=== PATIENT | female | born 1950 | race Caucasian/White ===

== ENCOUNTER 2020-06-10 12:19 | Inpatient (IN) | payer MEDICARE, OTHER ==
[~2020-06-10] VITALS: Ht 152.4 cm; Wt 63.0 kg
--- NOTE | 2020-06-10 16:45 | NUR ---
PT ARRIVED TO CCU VIA STRETCHER AT 1620 ACCOMPANIED BY KRISTAL UP. ABLE TO STAND AND PIVOT TO BED. HR UP IN 130'S-160'S WITH ACTIVITY. SOB, ACCESSORY MUSCLE USE AND TACHYPNEIC. REPORT PAIN IN RIGHT RIB/CHEST AREA THAT HAS OCCURRED FOR 3 DAYS AND GOTTEN WORSE TODAY. PT RATES PAIN 7/10, SHARP AND CONSTANT. WILL NOTIFY MD OF HR.
--- NOTE | 2020-06-10 18:30 | NUR ---
PT URINATED 300 MLS OF FOUL MARGARET URINE. LABORED BREATHING WITH EXERTION. ABLE TO GET UP TO BSC. HR INCREASED TO 160'S. AFTER SETTLING BACK IN TO BED HR STILL ELEVATED, 5 MG IV METOPROLOL GIVEN. HR MORE STABLE NOW 90'S-100'S. STARTED NEW 22 G IV IN RT WRIST. D5 1/2 NS 20 MEQ K INFUSING CURRENTLY. PT REFUSED DINNER. WENT IN WHEN IV PUMP ALARMED, PT COVERED IN SWEAT AND REPORTS NIGHT SWEATS ARE NORMAL FOR HER WHEN SHE SLEEPS. PT AFEBRILE. PT REQUESTED TO CONTINUE SLEEPING, CALL LIGHT WITHIN REACH.
--- NOTE | 2020-06-10 19:15 | NUR ---
Report received, orders acknowledged. HR in the 90's, SpO2 in the upper 90's on RA.
--- NOTE | 2020-06-10 20:15 | NUR ---
Patient sleeping on right side, respirations even and unlabored. SpO2 in the upper 90's on RA, HR in the 90's. D5 1/2NS with 20K infusing at 125 mls/hr. Call light within reach.
--- NOTE | 2020-06-10 20:45 | NUR ---
Patient sleeping in bed on right side, respirations even and unlabored. Patient rouses to physical stimulation. Patient reports "I just feel so tired." Vital signs taken, assessment complete. Diminished and coarse lung sounds auscultated on the upper/lower right side, clear sounds auscultated throughout the left lobe. SBA to bedside commode, patient slightly unsteady on feet. 350 mls of dark yellow urine produced. Patient hair drenched in sweat, patient reports "I've been very sweaty at night the last month. I don't have a fever ever though, so I don't know why." Water refreshed, patient adjusted in bed for comfort. Denies further needs at this time, call light within reach.
--- NOTE | 2020-06-10 22:57 | NUR ---
Patient sleeping on right side, respirations even and unlabored. Snoring noted. Patient rouses to touch as pulse oximetry readjusted on patient finger. HR in the 90's, SpO2 of 96% on RA. Patient denies pain, states "I'm just so tired." Denies needs at this time, falls back asleep easily. Call light within reach.
--- NOTE | 2020-06-11 00:30 | NUR ---
Patient sleeping in bed on left side. Respiratory rate noted to be 30 breaths/min, breathing is regular but slightly labored. No accessory muscle use noted. SpO2 in the upper 90's on RA, HR in the 90's. Patient rouses to voice. Vital signs taken, assessment complete. Temp of 99.0 degrees noted, light expiratory wheezes auscultated throughout all lobes. Diminished lung sounds in the right lobe, good aeration auscultated in the left lobe. Patient reports pain in the lower right chest with deep breathing or coughing. Denies need for prn medication, reports the pain is intermittent and tolerable. Patient states "I am just so exhausted." Denies further needs at this time, patient falls back asleep easily. Call light within reach.
--- NOTE | 2020-06-11 02:15 | NUR ---
Six second run of SVT noted with HR in the 160s. Patient sleeping at this time. Will continue to monitor.
--- NOTE | 2020-06-11 03:00 | NUR ---
Patient request to void. Up to bedside commode with SBA, voids 325 mls of jeff urine. Returns to bed. Patient clammy from sweating, warm cloths provided to wash face. Hair combed. HR sustaining in the 110-120's, 5mg of IV metoprolol given. Patient reports pain of 7/10 in right ribs, 650mg of PO tylenol given. Sputum sample collected, bloody sputum noted. Vital signs taken, assessment complete. Clear lung sounds throughout the left lobe. Diminished lung sounds with soft expiratory wheezes auscultated throughout the right lobe. SpO2 in the mid-90's on RA, patient RR in the upper 20's. SOB noted with the activity of using the BSC. Patient denies needs at this time, call light within reach.
--- NOTE | 2020-06-11 05:30 | NUR ---
Patient sleeping in bed on left side, RR in the low 20's. Respirations regular with slightly labored breathing noted. No accessory muscle use. SpO2 in the mid-90's on RA. Patient rouses to voice. Vital signs taken, assessment complete. Expiratory wheezes more prominently auscultated throughout right lobe with coarse sounds as well. Breathing tx administered. Fluids infusing at 125 mls/hr. Patient head and neck notably diaphoretic, cold cloth applied. Hair combed and new gown provided due to sweatiness. Patient reports pain in right side of chest is a dull 2/10 pain with shallow breaths, 7/10 sharp pain with deep breaths or coughing. Patient denies needs at this time, call light within reach.
--- NOTE | 2020-06-11 06:40 | EKG ---
[facility] [address] [place], [place] [address] Signed Sinus tachycardia with premature atrial complexes Otherwise normal ECG No previous ECGs available Confirmed by NICHOLAS TA MD ([id number] on 06/11/2020 6:40:33 AM Electronically Signed By: NICHOLAS TA MD 06/11/20 0640 PATIENT NAME: ONIEL DING Electrocardiogram DATE OF : 52 PHYSICIAN: NICHOLAS TA MD REPORT #: [id number] REPORT IS CONFIDENTIAL AND NOT TO BE RELEASED WITHOUT AUTHORIZATION
--- NOTE | 2020-06-11 07:35 | PATH ---
[facility] [address] [place], [place] [address] Signed ORDERING PHYSICIAN: Mary Yadav MD PATIENT NAME: ONIEL DINGAN GENDER: F : 1950 Prior History: No cases found. SPECIMEN(S): MOLECULAR PATHOLOGY RESULTS: SARS-CoV-2 Not Detected ADDITIONAL NOTES.: The [place] Fusion SARS-CoV-2 Assay is a multiplex real-time PCR (RT-PCR) in vitro diagnostic test intended for the qualitative detection of RNA from SARS-CoV-2 from individuals who meet COVID-19 clinical and/or epidemiological criteria. In general, SARS-CoV-2 RNA can be detected during the acute phase of infection. Positive results indicate the presence of SARS-CoV-2 RNA. Clinical correlation with patient history and other diagnostic information is necessary to determine patient infection status. Positive results do not rule out bacterial infection or co-infection with other viruses. Negative results do not preclude SARS-CoV-2 infection and should not be used as the sole basis for patient management decisions. Negative results must be combined with other clinical observations, patient history, and epidemiological information. The [place] Fusion SARS-CoV-2 Assay is not yet approved or cleared by the [place] FDA. When there are no FDA-approved or cleared tests available, and other criteria are met, FDA can make tests available under an emergency access mechanism called an Emergency Use Authorization (EUA). The EUA for this test is supported by the [place] of Health and Human Service's (HHS's) declaration that circumstances exist to justify the emergency use of in vitro diagnostics for the detection and/or diagnosis of the virus that causes COVID-19. This EUA will remain in effect for the duration of the COVID-19 declaration justifying emergency of IVDs, unless it is terminated or revoked by FDA, after which the test may no longer be used. The [place] Fusion SARS-CoV-2 Assay is for use only under EUA PATIENT NAME: ONIEL DING PATHOLOGY DATE OF : 52 REPORT #: [id number] PHYSICIAN: MARLEEN FERNANDEZ PCP: NO PRIMARY CARE PHYSICIAN REPORT IS CONFIDENTIAL AND NOT TO BE RELEASED WITHOUT AUTHORIZATION [facility] [address] [place] [id number] Signed in laboratories certified under the Clinical Laboratory Improvement Amendments of 1988 (CLIA) to perform high complexity tests. [facility] is certified under CLIA to perform high complexity clinical laboratory testing. PERFORMING LABORATORY.: Molecular testing was performed by [facility] [address] [place], [place] [address] [address] (Wood Fence Installer: Enoch Marley D.O.; CLIA#: [id number]) Diagnostician: System Interface Pathologist Electronically Signed 06/11/2020 Copies: ~ PATIENT NAME: ONIEL DING PATHOLOGY DATE OF : 52 REPORT #: [id number] PHYSICIAN: MARLEEN FERNANDEZ PCP: NO PRIMARY CARE PHYSICIAN REPORT IS CONFIDENTIAL AND NOT TO BE RELEASED WITHOUT AUTHORIZATION
--- NOTE | 2020-06-11 07:53 | NUR ---
SLEEPING WHEN CHECKED ON. NO DISTRESS NOTED.
--- NOTE | 2020-06-11 08:15 | NUR ---
WOKE FOR ASSESSMENT. HAS PAIN UNDER RIGHT BREAST AREA AND AROUND TO BACK. PATIENT STATES THE TYLENOL HELPS BUT DOES NOT TAKE THE PAIN COMPLETLY AWAY. REFUSING BREAKFAST. TALKED WITH PATIENT ABOUT POC, INDICATES UNDERSTANDING.
--- NOTE | 2020-06-11 08:30 | NUR ---
COVID TEST NEGATIVE.
--- NOTE | 2020-06-11 09:59 | NUR ---
TRANSFER ORDERS TO MED-SURG RECIEVED. PATIENT RESTFUL, REFUSING AM CARES AT THIS TIME.
--- NOTE | 2020-06-11 10:00 | NUR ---
HAS BEEN NAPPING MOST OF MORNING. ENC TO TAKE PO.
--- NOTE | 2020-06-11 13:02 | NUR ---
bed bath done, pt. did not want her hair done. helped her up to the commode. back to bed. linens and gown changed. no other needs at this time.
--- NOTE | 2020-06-11 14:26 | NUR ---
MED REC COMPLETE
--- NOTE | 2020-06-11 14:45 | NUR ---
REPORT TO MED-SURG.
--- NOTE | 2020-06-11 14:47 | NUR ---
PT LAYING IN BED ON L SIDE. PT ADMITTED SHE DOESNOT FEEL GOOD AND REALLY HASN'T IMPROVED IN HER ESTIMATION. GAVE BLESSING, PT REQUESTED PRAYER. WILL FOLLOW
--- NOTE | 2020-06-11 14:55 | NUR ---
TYLENOL 650 MG PO GIVEN FOR C/O RIGHT RIB PAIN.
--- NOTE | 2020-06-11 15:00 | NUR ---
PATIENT ARRIVES ON FLOOR. REPORT RECIEVED FROM CCU. VS TAKEN. RESPIRATION RATE 30 RPM. EXPIRATORY WHEEZES THROUGHOUT. PATIENT COMPLAINS OF PAIN IN RIGHT CHEST AREA RADIATING TO RIGHT UPPER BACK.
--- NOTE | 2020-06-11 15:00 | NUR ---
TO MED-SURG VIA CHAIR.
--- NOTE | 2020-06-11 15:48 | NUR ---
called RT to assess patient due to increased respiration rate and expiratory wheezes throuhgout. heat pack given to patient for pain.
--- NOTE | 2020-06-11 16:21 | NUR ---
RT IN TO ASSESS AND GIVE NEB TX.
--- NOTE | 2020-06-11 16:51 | NUR ---
PATIENT RESTING IN BED. ASSESSMENT COMPLETE. PATIENT COMPLAINTS OF RESTLESS LEGS. REQUESTS TYLENOL OR NEURONTIN.
--- NOTE | 2020-06-11 17:22 | NUR ---
VS TAKEN AND MEDS GIVEN. PATIENT RESPIRATION RATE DECREASED TO 18. FINE CRACKLES NOTED IN RIGHT LOWER LOBE. PAIN 4/10. PATIENT REFUSES TO ORDER DINNER, STATING SHE IS AFRAID SHE WILL THROW IT UP. OFFERED ZOFRAN, BUT PATIENT REFUSED. PATIENT UP TO TOILET. AMBULATED WELL INDEPENDENTLY. IV FLUIDS CHANGED TO LR AT DECREASED RATE OF 75 ML/HR. SCDS PLACED. PATIENT ON ROOM AIR. TELE ON. NO FURTHER REQUESTS. CALL LIGHT WITHIN REACH.
--- NOTE | 2020-06-11 19:45 | NUR ---
REPORT RECEIVED FROM DAY SHIFT RN. PT LYING IN BED ALERT AND ORIENTED. RESPIRATIONS EVEN AND UNLABORED. RA. IVF INFUSING. DENIES NEEDS AT THIS TIME. WHITE BOARD UPDATED. CALL LIGHT IN REACH.
--- NOTE | 2020-06-11 21:57 | NUR ---
PT RETURNING TO BED FROM BR. REPORTS RIGHT SIDE PAIN THAT IS NOT CONTROLLED WITH PRN TYLENOL. MD NOTIFIED. NEW TELEPHONE ORDERS RECEIVED VERIFIED WITH READ BACK METHOD.
--- NOTE | 2020-06-11 22:00 | NUR ---
PATIENT CALLED TO USE THE REST ROOM. WENT IN TO THE ROOM SAW PATIENT ALREADY UP WITH SCD STILL ON. PATIENT REFUSED TO PUT THE SOCKS ON. BAREFOOT TO THE BATHROOM AND BACK TO BED. CALL LIGHT AND SIDE TABLE WITHIN REACH. SCD'S BACK ON.
--- NOTE | 2020-06-11 22:13 | NUR ---
ROUNDED CHARGE. pt AWAKE, RESTING IN BED, COUGHING UP MUCOUS, DENIES NEEDS. PRIMARY RN IN ROOM AT THIS TIME.
--- NOTE | 2020-06-11 22:30 | NUR ---
EVENING ASSESSMENT COMPLETE. SCHEDULED MEDS ADMINISTERED PER EMAR. PRN ADMINISTERED FOR RIGHT SIDE PAIN THAT STARTS UNDER HER BREAST AND RADIATES TO HER BACK. RESPIRATIONS 24. PT REPORTS FEELING "SLIGHTLY" SHORT OF BREATH. REFUSED PRN BREATHING TX. SpO2 96% ON RA. HR 80'S. SCD'S IN PLACE. IVF INFUSING PER ORDER. NO QUESTIONS OR CONCERNS AT THIS TIME. CALL LIGHT IN REACH.
--- NOTE | 2020-06-12 00:33 | NUR ---
PT RESTING WITH EYES CLOSED, NAD. RESPIRATIONS EVEN AND UNLABORED. TELE #[address] HR IRREGULAR IN THE 70'S.
--- NOTE | 2020-06-12 03:24 | NUR ---
CALL LIGHT ANSWERED. PT UP TO BR WITH SBA. GAIT STEADY. BACK TO BED, [place]. INCREASED RESPIRATIONS WITH AMBULATION. DENIES CP OR SOB. ASSESSMENT COMPLETE. IVF INFUSING.
--- NOTE | 2020-06-12 03:29 | NUR ---
PATIENT CALLED TO USE THE RESTROOM. SBA. PATIENT IS BACK TO BED. PRIMARY RN WAS WITH PATIENT.
--- NOTE | 2020-06-12 07:16 | NUR ---
Report from Lincoln Marsh RN. Patient resting on right side. Allowed to rest at this time.
--- NOTE | 2020-06-12 08:04 | NUR ---
this rn recieved report from ayla sims. this rn to take over care
--- NOTE | 2020-06-12 09:10 | NUR ---
THIS RN IN PTS ROOM TO DO PTS MORNING ASSESSMENT AND GIVE MORNING MEDS. PT LAYING IN BED AT THIS TIME. PT ALERT BUT SLIGHTLY DROWSY THIS AM. PT DOESN'T HAVE PAIN TO NOTE AT THIS TIME
--- NOTE | 2020-06-12 09:20 | NUR ---
THIS RN OFFERED PT ROBITUSSIN FOR HER PRODUCTIVE COUGH THAT IS PRODUCING MEDIUM AMOUNT OF SPUTUM
--- NOTE | 2020-06-12 10:28 | NUR ---
PATIENT OUT OF ROOM, LINENS CHANGED. FRESH ICE WATER GIVEN, GARBAGE EMPTIED
--- NOTE | 2020-06-12 10:46 | NUR ---
PATIENT JUST RETURNED TO BED FROM IMAGING. LAID DOWN BUT GOT NAUSEATED AND SAT UP. STATES SHE JUST NEEDS A MINUTE. SHE IS ON A REGULAR DIET BUT HAS HAD A POOR APPETITE FOR 3 WEEKS. SHE VOMITS WHENEVER SHE EATS. SHE HAD 1/2 PIECE TOAST WITH HOT TEA FOR BREAKFAST AND KEPT IT DOWN. SHE HASN'T DRANK ANY ENSURE TODAY BUT HAS A VANILLA ENSURE ENLIVE ON HER BEDSIDE TABLE. SHE HAS NO QUESTIONS OR CONCERNS FOR ME AT THIS TIME. WILL CONTINUE TO MONITOR.
--- NOTE | 2020-06-12 11:30 | NUR ---
Spoke with Cinthya, states she lives in [place] alone. Has friends who help whenever needed. She owns her home. She is independent and works at the [employer]. She does not have a pcp and has not had one in some time. She would like to find a Dr. but does not care who she is scheduled with. Updated there is a new MD in town and they are still taking Medicage pt. I will call for appt. Pt states she feels better, but cont. to have pain in her chest with cough. She has a congested sounding cough during our visit.
--- NOTE | 2020-06-12 12:20 | NUR ---
THIS RN IN PTS ROOM TO HANG ANTIBIOTICS. BOTH PTS IVS AT THIS TIME GO BAD SIMULTANEOUSLY. THIS RN ATTEMPTED 3 TIMES AND FINALLY GOT AN IV IN PTS RIGHT AC, 20G. PT TOLERATED WELL. THIS RN WILL HAVE TO DELAY SOME IV MEDS DUE TO LIMITED VEIN STATUS.
--- NOTE | 2020-06-12 13:45 | NUR ---
THIS RN IN PTS ROOM TO START IV MEDS AGAIN DUE TO LIMITED VEIN STATUS.
--- NOTE | 2020-06-12 13:59 | NUR ---
PATIENT RESTING WITH EYES CLOSED. WAKES TO VOICE. VITALS AND I&OS CHARTED. PATIENT ATE NO LUNCH. CALL [facility] IN REACH, NO OTHER NEEDS AT THIS TIME
--- NOTE | 2020-06-12 14:20 | NUR ---
THIS RN ATTEMPTED ANOTHER IV ON THE LEFT SIDE, NOT ABLE TO GET IV START. THIS RN TO STILL DELAY SOME MEDS DUE TO ONE IV SITE
--- NOTE | 2020-06-12 14:25 | NUR ---
THIS RN PROVIDED PT FOR HER 650MG OF TYLENOL AT THIS TIME FOR HER RIGHT CHEST PAIN.
--- NOTE | 2020-06-12 14:26 | NUR ---
PT LAYING ON S SIDE, AND I ENTERED HER RM, IV ALARM WAS GOING OFF. IT WAS RATHER DISTURBING TO PT, GAVE BLESSING AND INFORMED JEOVANNY NAIK. WILL FOLLOW
--- NOTE | 2020-06-12 14:50 | NUR ---
Appt Scheduled to establish care with Dr. Darnell Jun 17, 2020 at 5 pm.
--- NOTE | 2020-06-12 17:22 | NUR ---
PATIENT AWAKE IN BED, VITALS AND I&OS CHARTED. PATIENT FORGOT HER BOTTOM DENTURES AT HOME, AND REQUESTED NO DINNER. TEETH WILL BE BROUGHT IN TOMORROW. HAS AN ENSURE AT BEDSIDE. CALL LIGHT IN REACH, NO OTHER NEEDS AT THIS TIME
--- NOTE | 2020-06-12 18:28 | NUR ---
THIS RN PEEKED AT PT, PT APPEARS TO BE RESTING WITH RESPIRATIONS NOTED
--- NOTE | 2020-06-12 19:12 | NUR ---
RECEIVED REPORT FROM JEOVANNY JACKSON. pt RESTING IN BED. NO REQUESTS AT THIS TIME. CALL LIGHT WITHIN REACH. WHITEBOARD UPDATED.
--- NOTE | 2020-06-12 20:13 | NUR ---
IN TO DO ASSESSMENT. pt REPORTED 3/10 PAIN, REFUSED PAIN MEDICATION AT THIS TIME, "IT'S A LOT BETTER THAN IT HAS BEEN." REPORTED FEELING "NORMAL" STRENGTH WHEN AMBULATING, STEADY ON FEET. AMBULATED TO TOILET AND BACK TO BED. ASSESSMENT DONE. MEDICATIONS GIVEN (SEE MAR). DISCUSSED PLAN OF CARE. NO FURTHER REQUESTS AT THIS TIME. RESTING IN BED WITH CALL LIGHT WITHIN REACH.
--- NOTE | 2020-06-12 22:22 | NUR ---
pt RESTING IN BED WITH EYES CLOSED, IV ANTIBIOTICS INFUSING (SEE MAR). CALL LIGHT WITHIN REACH.
--- NOTE | 2020-06-13 00:14 | NUR ---
IV PUMP BEEPING, NEW BAG OF IVF INFUSING (SEE MAR). pt UP TO TOILET AND BACK TO BED. NO REQUESTS AT THIS TIME. CALL LIGHT WITHIN REACH.
--- NOTE | 2020-06-13 02:54 | NUR ---
IV ALARMING. ERROR RESOLVED. pt RESTING IN BED. REPORTED 3/10 PAIN AT THIS TIME, REFUSED PAIN MEDICATION. ASSESSMENT DONE. LUNG SOUNDS WHEEZY. NO REQUESTS AT THIS TIME. CALL LIGHT WITHIN REACH.
--- NOTE | 2020-06-13 04:21 | NUR ---
ROUNDED ON pt. RESTING WITH EYES CLOSED, RESPIRATIONS REGULAR AND UNLABORED. CALL LIGHT WITHIN REACH.
--- NOTE | 2020-06-13 05:30 | NUR ---
CALL LIGHT ON. pt UP TO VOID AND BACK TO BED. VITALS AND I&0 RECORDED. pt REPORTED 6/10 PAIN, PRN GIVEN (SEE MAR). NO FURTHER REQUESTS CALL LIGHT WITHIN REACH.
--- NOTE | 2020-06-13 06:12 | NUR ---
IV ANTIBIOTIC INFUSING (SEE MAR). NO REQUESTS AT THIS TIME. CALL LIGHT WITHIN REACH.
--- NOTE | 2020-06-13 06:40 | NUR ---
pt RESTED MOST OF SHIFT. PAIN MEDICATION X1. REPORTED IMPROVEMENT IN COUGH THROUGHOUT SHIFT. COUGH MEDS X1. IVF AND IV ANTIBIOTICS. SBA. USES CALL LIGHT APPROPRIATELY.
--- NOTE | 2020-06-13 08:00 | NUR ---
THIS RN RECEIVED REPORT FROM SANTIAGO UP. PT APPEARS TO BE RESTING AT THIS TIME
--- NOTE | 2020-06-13 09:22 | NUR ---
I ASKED PATIENT WOULD SHE LIKE TO WASH HER FACE OR BRUSH HER TEETH AND SHE SAID NOT RIGHT NOW.
--- NOTE | 2020-06-13 10:30 | NUR ---
THIS RN IN PTS ROOM TO GIVE PT POTASSIUM. THIS RN NOTICED THAT PT WAS COUGHING UP CLOTS OF SPUTUM MIXED WITH BLOOD. THIS RN VERBALLY NOTIFIED
--- NOTE | 2020-06-13 19:00 | NUR ---
RECEIVED REPORT FROM JEOVANNY JACKSON. pt RESTING IN BED. NO REQUESTS AT THIS TIME. REPORTED PAIN IS "OKAY". CALL LIGHT WITHIN REACH. WHITEBOARD UPDATED.
--- NOTE | 2020-06-13 21:20 | NUR ---
PT CALLED TO GET UP TO THE TOILET, INDP IN , SBA WITH IV POLE, IV PUMP ALARMING, LINE COMPLETE, RN INFORMED, TO BE IN FOR PM MEDS, PT BK TO BED, TOOK VITALS, NO FURTHER REQUESTS AT THIS TIME
--- NOTE | 2020-06-13 21:20 | NUR ---
pt UP TO VOID, INDEPENDENT. VITALS AND I&O RECORDED. pt RESTING IN BED. MEDICATIONS GIVEN (SEE MAR). ASSESSMENT DONE. pt REPORTED 9/10 PAIN, PAIN MANAGEMENT EDUCATION DONE. PRN GIVEN (SEE MAR). NO FURTHER REQUESTS AT THIS TIME. CALL LIGHT WITHIN REACH.
--- NOTE | 2020-06-13 22:03 | NUR ---
IV ANTIBIOTIC INFUSING (SEE MAR). pt REPORTED PAIN HAS IMPROVED, DENIED NEED FOR MORE MEDICATION AT THIS TIME. CALL LIGHT WITHIN REACH.
--- NOTE | 2020-06-14 00:01 | NUR ---
ROUNDED ON pt. RESTING IN BED. CALL LIGHT WITHIN REACH.
--- NOTE | 2020-06-14 02:15 | NUR ---
ROUNDED ON pt. RESTING IN BED. NO REQUESTS AT THIS TIME. CALL LIGHT WITHIN REACH.
--- NOTE | 2020-06-14 04:03 | NUR ---
PT CALLED TO GET UP TO THE TOILET, SBA WITH IV POLE, PT UP AT SIDE OF BED, NO FURTHER REQUEST AT THIS TIME
--- NOTE | 2020-06-14 06:36 | NUR ---
IV ANTIBIOTIC INFUSING PER ORDER (SEE MAR). pt REPORTED 9/10 PAIN, PRN GIVEN (SEE MAR). pt UP TO VOID AND HAVE SMALL LOOSE BM. RESTING IN BED. ASSESSMENT DONE. VITALS AND I&O RECORDED. CALL LIGHT WITHIN REACH.
--- NOTE | 2020-06-14 08:45 | NUR ---
PT THREW UP SOME OF HER BKF AND IT IS NOTED TO RED IN COLOR. THIS IS UNCHANGED FROM YESTERDAY. PT STATES "I AM NOT NAUSED, BUT THINGS WILL JUST NOT GO DOWN".
--- NOTE | 2020-06-14 08:51 | NUR ---
PATIENT ATTEMPTED TO EAT BREAKFAST, VOMITED WHAT SHE ATE. LINENS CHANGED AND PATIENT CLEANED UP. HOUSEKEEPING IN TO CLEAN FLOOR.
--- NOTE | 2020-06-14 09:30 | NUR ---
PT STATES ZOFRAN HAS HELPED NAUSEA, CONT. TO HAVE LOOSE PRODUCTIVE COUGH OF BLOOD TINGED SPUTUM. REPORTS OXYCODONE RECIEVED EARLIER HAS HELP, SHE IS COMFORTABLE, DENIES FURTHER NEEDS, CALL LIGHT IN EASY REACH.
--- NOTE | 2020-06-14 11:00 | NUR ---
Spoke with Cinthya. She states she continues to have nausea and vomits everything she eats. She is able to keep water down. She denies feeling weak and fews she could go home. States her friends can take her to 's appts if needed or to [facility] for follow up. Discussed my concern she lives alone and is unable take food. She is not concerned for her job, states it will be there whenever she returns. Cinthya feels she could return to home and function without problem until she is see for follow up. Spoke with Dr. Johnson and he states he with an oncologist and they do not feel pt should wait two weeks for appt. he is attempting to possibly transfer pt for bronchoscopy or move the date up.
--- NOTE | 2020-06-14 12:06 | NUR ---
PT ALERT, ORIENTED AND SITTING ON SIDE OF BED VISITING WITH A FRIEND. PT IS IMPROVING, THANKED ME FOR COMING BY. GAVE BLESSING AND WILL FOLLOW
--- NOTE | 2020-06-14 12:50 | NUR ---
MESSAGE LEFT AT [facility] FOR THEM TO CANCEL REFERRAL FOR PATIENT.
[2020-06-14] MEDS ORDERED: METOPROLOL TART50 MG PO (12:56)
[2020-06-14] MEDS ORDERED: OXYCODONE HCL5 MG PO (12:57)
[2020-06-14] MEDS ORDERED: LEVOFLOXACIN750 MG PO (12:58)
[2020-06-14] MEDS ORDERED: METRONIDAZOLE500 MG PO (12:59)
--- NOTE | 2020-06-14 13:05 | NUR ---
MRI QUESTIONAIRE COMPLETED, TO MRI AT THIS TIME.
--- NOTE | 2020-06-14 14:10 | NUR ---
PT RETURNED TO ROOM FROM MRI, C/O FEELING VERY TIRED AND SOB WITH EXHERTION, ASSISTED INTO BED, WANTS TO TAKE A NAP, NO APPETITE, CONT. TO HAVE PROD COUGH OF BLOODY MUCOUS INTO EMESIS BAG. MAINTAINING OXIMETER 94% ON ROOM AIR. CALL LIGHT IN EASY REACH.
--- NOTE | 2020-06-14 14:36 | NUR ---
PATIENT REFUSED LUNCH. VITALS AND I&OS CHARTED. FRESH ICE WATER PROVIDED. CALL LIGHT IN REACH, NO OTHER NEEDS AT THIS TIME
--- NOTE | 2020-06-14 14:55 | NUR ---
PT IS TAKING PO FLUIDS, CONT. TO HAVE NO APPETITE. DISCHARGE INSTRUCTION GIVEN AT THIS TIME, PHARMACY WAS IN AND DISCUSSED MEDS, S.E. AND ADDRESSED ANY CONCERNS. PT VERBALIZES UNDERSTANDING OF FOLLOWUP APPOINTMENTS SCHEDULED. FRIEND HAS GONE TO SAFEKEEPING CLERK PERSCRIPTIONS AND WILL BE HELPING HER WHEN SHE GOES HOME. PLAN TO DC HOME AFTER IV ABX CURRENTLY INFUSING ARE DONE.
== END 2020-06-14 15:48 | disposition home or self-care (01) | DRG 194 ==
LOC: ED 12:19 → CCU 15:38 → MS 15:38
PROVIDERS: ADMIT Internal Medicine; ATTEND Internal Medicine
DX: J18.9 Pneumonia, unspecified organism (principal); E22.2 Syndrome of inappropriate secretion of antidiuretic hormone; R04.2 Hemoptysis; C34.01 Malignant neoplasm of right main bronchus; Z20.828 Contact with and (suspected) exposure to other viral communicable diseases; D47.3 Essential (hemorrhagic) thrombocythemia; I10 Essential (primary) hypertension; F17.210 Nicotine dependence, cigarettes, uncomplicated
CPT/HCPCS: 36415; 70553; 71046; 71260; 74177; 80048; 80053; 81001; 83605; 83735; 83935; 84300; 84484; 85025; 87088; 93005; 93010; 94640; 94760; 96374; 96375; 99285-25; 99406; A9577; C9803; J0456; J0692; J0696; J1650; J2405; J3475; J3480; J7060; J7121; Q9967